=== PATIENT | male | born 1990 | race Caucasian/White ===

== ENCOUNTER 2020-01-24 14:07 | Outpatient (REF) | payer OTHER, SELFPAY ==
[2020-01-24 23:10] LABS: Calculated LDL 98 mg/dL (<100); Cholesterol 145 mg/dL (<200); HDL Cholesterol 40 mg/dL (40-60); Triglyceride 39 mg/dL (<150)
[2020-01-27 06:07] LABS: Vitamin D 25 Total 26.7 ng/ml (30-100)
== END 2020-01-24 14:27 ==
LOC: NCHCN 14:07
PROVIDERS: PCP Internal Medicine; Visit Provider Internal Medicine
DX: Z13.220 Encounter for screening for lipoid disorders (principal); Z13.21 Encounter for screening for nutritional disorder; Z79.899 Other long term (current) drug therapy
CPT/HCPCS: 80061; 82306